=== PATIENT | female | born 1960 | race Caucasian/White ===

== ENCOUNTER 2019-05-21 15:45 | Inpatient (IN) | payer MEDICARE, OTHER ==
[~2019-05-21] VITALS: Ht 175.3 cm; Wt 73.1 kg
[2019-05-21 15:49] VITALS: BP 127/82
[2019-05-21] MEDS ORDERED: CEFPODOXIME PR200 M1 PO (16:14)
[2019-05-21] MEDS ORDERED: MEN-PHOR LOTIO222 M1 TOP (16:14)
[2019-05-21] MEDS ORDERED: FLEXERIL PO (16:15)
[2019-05-21] MEDS ORDERED: DILAUDID2 MG PO (16:16)
[2019-05-21] MEDS ORDERED: KRISTALOSE20 GM PO (16:16)
[2019-05-21] MEDS ORDERED: LOPERAMIDE 2 MG2 M1 PO (16:18)
[2019-05-21] MEDS ORDERED: ATIVAN0.5 M1 PO (16:19)
[2019-05-21] MEDS ORDERED: METRONIDAZOLE500 M4 PO (16:19)
[2019-05-21] MEDS ORDERED: KEFLEX500 M1 PO (16:20)
[2019-05-21 16:25] LABS: HEMATOCRIT 23.6 % (37.0-47.0); HEMOGLOBIN 7.6 gm/dL (12.0-15.0); MCH 27.2 pg (26.0-34.0); MCHC 32.4 g/dL (28.0-37.0); MCV 83.9 fL (80.0-100.0); NUCLEATED RBCS 0 /100WBC; PLATELET COUNT* 309 thou/uL (150-400); RBC 2.81 mil/uL (4.20-5.00); RDW-CV 16.5 % (10.5-14.5); WBC 39.6 thou/uL (4.0-11.0)
[2019-05-21] MEDS ORDERED: MS CONTIN 30 MG30 MG PO (16:28)
[2019-05-21] MEDS ORDERED: OLANZAPINE15 M1 PO (16:28)
[2019-05-21] MEDS ORDERED: ONDANSETRON ODT8 MG PO (16:32)
[2019-05-21] MEDS ORDERED: OXYCODONE HCL5 MG PO (16:32)
[2019-05-21] MEDS ORDERED: COMPAZINE10 MG PO (16:33)
[2019-05-21] MEDS ORDERED: PROTONIX40 M1 PO (16:33)
[2019-05-21] MEDS ORDERED: MIRALAX17 GM PO (16:33)
[2019-05-21 16:35] LABS: APTT 33.4 Seconds (25.0-31.3); INR 1.1; PROTIME 10.8 Seconds (9.20-11.50)
[2019-05-21 16:36] LABS: CALCIUM 8.3 mg/dL (8.5-10.1); CREATININE 1.8 mg/dL (0.6-1.3); POTASSIUM 5.7 mmol/L (3.5-5.1)
[2019-05-21 16:52] LABS: ABSOLUTE LYMPHOCYTES 0.8 thou/uL (0.8-5.3); ABSOLUTE NEUTROPHILS 38.8 thou/uL (1.6-8.1); PLATELET ESTIMATE ADEQUATE
[2019-05-21 16:53] LABS: ALBUMIN 1.2 g/dL (3.4-5.0); HYPOCHROMASIA 1+; TOTAL BILIRUBIN 0.4 mg/dL (<0.1-1.0); TOTAL PROTEIN 5.2 g/dL (6.4-8.2)
[2019-05-21 16:54] LABS: MICROCYTES Occasional
[2019-05-21 17:47] VITALS: BP 109/72
[2019-05-21 18:31] VITALS: BP 108/72
[2019-05-21 19:30] VITALS: BP 112/79
[2019-05-22] VITALS (7 sets, daily range): BP systolic 98–113; BP diastolic 67–74
[2019-05-22 05:16] LABS: ABSOLUTE LYMPHOCYTES 0.3 thou/uL (0.8-5.3); ABSOLUTE MONOCYTES 0.6 thou/uL (0.0-1.2); ABSOLUTE NEUTROPHILS 31.8 thou/uL (1.6-8.1); BASOPHILS 0.1 %; HEMATOCRIT 21.8 % (37.0-47.0); HEMOGLOBIN 7.1 gm/dL (12.0-15.0); LYMPHOCYTES 0.9 %; MCH 27.6 pg (26.0-34.0); MCHC 32.7 g/dL (28.0-37.0); MCV 84.4 fL (80.0-100.0); MONOCYTES 1.7 %; MPV 6.7 fl. (7.2-11.1); NUCLEATED RBCS 0 /100WBC; PLATELET COUNT* 244 thou/uL (150-400); POLYS 97.3 %; RBC 2.58 mil/uL (4.20-5.00); RDW-CV 16.3 % (10.5-14.5); WBC 32.7 thou/uL (4.0-11.0)
[2019-05-22 05:43] LABS: ALBUMIN 1.1 g/dL (3.4-5.0); CALCIUM 7.9 mg/dL (8.5-10.1); CREATININE 1.7 mg/dL (0.6-1.3); POTASSIUM 5.5 mmol/L (3.5-5.1); TOTAL BILIRUBIN 0.4 mg/dL (<0.1-1.0); TOTAL PROTEIN 4.7 g/dL (6.4-8.2)
[2019-05-22] MEDS ORDERED: LIDOCAINE5 GM TOP (06:59)
[2019-05-22] MEDS ORDERED: SENNA8.6 MG PO (07:03)
[2019-05-22] MEDS ORDERED: ZYPREXA5 MG PO (07:03)
--- NOTE | 2019-05-22 07:23 | NUR ---
PT AWAKE AND ANXIOUS MOST OF THE SHIFT. ASSESSMENT DOCUMENTED. MEDS GIVEN PER E-MAR. PT AND PATIENTS NIECE WORRIED ABOUT PTS MEDICATIONS. PT AND NIECE KEEP CHANGING DOSES OF MEDICATIONS, FIRST STATING PT TAKES 4MG PO DILAUDID Q4H, THEN WHEN GIVING MED PT STATES SHE ACTUALLY TAKES 4-8MG PO, ECT. PTS NIECE CAME TO NURSES STATION WHEN THIS NURSE WAS WITH PATIENT TO ASK ANOTHER NURSE TO GET THE DR TO ORDER "15 MG OF XANEX", PT AND FAMILY EDUCATED BY SEVERAL NURSES THAT THAT DOSE WAS NOT POSSIBLE, PT LATER TALKED TO THIS NURSE AND STATED MAYBE IT WAS A DIFFERENT PILL. NOTIFIED. PT ABLE TO GIVE A PHONE NUMBER FOR HOSPICE THIS AM. NUMBER CALLED FOR POONAM [phone], HOME MED LIST UPDATED WITH HER. PTS NIECE STILL STATES THAT IT IS WRONG. POONAM STATES THAT SHE IS THE PATIENT [facility] OF [facility], PHONE # FOR OFFICE IS [phone]. WILL CONTINUE WITH PLAN OF CARE.
--- NOTE | 2019-05-22 13:24 | EKG ---
[place] [id number] ELECTROCARDIOGRAM REPORT Name: SYLVIA RIVERS Room: [address] ADM IN ..#: [id number] Admission: 05/21/19 Attend Phys: Brian Kidd Discharge: Date of : 60 Report #: [id number] THIS REPORT FOR: //name// [facility] ED Test Date: 2019-05-21 Test Time: 16:48:11 Pat Name: SYLVIA LOPEZRebekah Department: Room: [facility] Gender: F Earth Moving Machine Operator: : 1960 Requested By: Igor Shelton Order Number: [id number] MD: Ruben Davis Measurements Intervals Humble Rate: 99 P: 58 SC: 139 QRS: 53 QRSD: 81 T: 55 QT: 303 QTc: 389 Interpretive Statements Sinus rhythm low voltage Anterior infarct, old Baseline wander in lead(s) V1 No previous ECG available for comparison Electronically Signed On 05-22-2019 13:24:27 BB SHOT PACKER by Ruben Davis [email or web address] <ELECTRONICALLY SIGNED> By: Ruben Davis MD, [facility] 05/22/19 1324 [id number] Ruben Davis MD, [facility] /EPI
--- NOTE | 2019-05-22 14:03 | NUR ---
Pt is A&O. Resides at home with her NUBIA and ROSA. Pt was on [facility] prior to this hospital stay. Pt voicing that she wants to try some rehab prior to return home. CM faxed referral to [facility] per Pt's request. Pt uses a walker for mobility. Therapy orders placed. Anticipate dc within the next few days. Pt to have a double J urethral stent on Monday.
--- NOTE | 2019-05-22 16:24 | NUR ---
WOUND CARE NOTE: CONSULT RECEIVED FOR STOMACH OPENINGS. PATIENT PRESENTS WITH TWO ABDOMINAL FISTULAS-PER PATIENT. THESE APPEAR TO BE HIGH OUTPUT WITHIN 30 MINUTES OF EMPTYING THESE, THE OSTOMY POUCHES REFILLED. THE APPLIANCES STARTED LEAKING, THESE WERE REMOVED. WASHED AROUND FISTULA SITES WITH SOAP AND WATER. SUPERIOR AND INFERIOR FISTULAS. SUPERIOR ONE IS LARGE, APPROXIMATELY 6X6, RED, MOIST WOUND BED. WHILE THE INFERIOR ONE IS APPROXIMATELY 0.5X0.5. APPLIED UROSTOMY POUCHES OVER THE SITES THE EFFLUENT IS LIQUID BROWN IN COLOR. ATTACHED THESE TO URINE DRAINAGE BAGS TO ASSIST WITH PREVENTING LEAKAGE. PATIENT TOLERATED THIS WELL. SACRUM (RIGHT SIDE): UNSTAGEABLE PRESSURE ULCER MEASURING 1.3X1X0.2. MOIST, YELLOW WOUND BED 100%. CARL-WOUND INTACT. COCCYX: DTI MEASURING 1X2. PURPLE, NON-BLANCHABLE DISCOLORATION. CLEANSED BOTH SITES WITH WOUND CLEANSER, PATTED DRY. APPLIED SKIN PREP TO CARL-WOUND. APPLIED OPTIFOAM AG AND COVERED WITH TEGADERM TO SECURE. PATIENT TOLERATED THIS WELL. EDUCATED PATIENT AND FAMILY MEMBER ON IMPORTANCE OF TURNING AND KEEPING OFF SITE TO PROMOTE HEALING, COMMUNICATED UNDERSTANDING, BUT WILL NEED ENCOURAGEMENT TO DO SO. RECOMMEND CHANGE DRESSINGS TO SACROCOCCYGEAL AREA Q3 DAYS AND NEEDED CHANGE POUCHES Q3-5 DAYS AND NEEDED ENCOURAGE GOOD NUTRTION/HYDRATION TURN Q2 HOURS, KEEP OFF ULCERS MUCH POSSIBLE LIMIT HOB <30 DEGREES
--- NOTE | 2019-05-22 18:01 | NUR ---
ASSUSSMED CARE OF PT APPROX 0730. REASSESSMENT COMPLETED CHARTED. MEDICATIONS GIVEN CHARTED. FAMILY AT BEDSIDE THIS SHIFT. PT OFF UNIT FOR PROCEDURE AND TESTING THIS AM. SAFTEY PRECAUTIONS UTILIZED HOURLY ROUNDING FOR SAFTEY. PT HAS BEEN SLEEPING AND DROWSY THIS AFTERNOON. WOUND NURSE CHANGED DRESSINGS AND OSTOMY BAG THIS SHIFT. PT CALLS OUT FOR NEEDS. PT ON TELE MONITOR. MEDICATIONS DISCUSSED WITH PT AND FAMILY.
[2019-05-23] VITALS (7 sets, daily range): BP systolic 92–149; BP diastolic 60–78
--- NOTE | 2019-05-23 04:04 | NUR ---
PT ALERT, ORIENTED WA. DOES FALL ASLEEP EASILY. TELEMETRY SHOWS SR. UP WITH ASSIST ON ONE. UROSTOMY DRAINING CLEAR YELLOW. TWO FISTULAS TO ILIOSTOMY BAGS THAT ARE ATTACHED TO FOLEYS FOR DRINAGE. CLINIMIX AT 40MLS/HR. PT ALTERNATING PAIN MEDICATIONS. WCTM.
[2019-05-23 05:50] LABS: CREATININE 1.6 mg/dL (0.6-1.3)
--- NOTE | 2019-05-23 11:10 | NUR ---
CM spoke with Isabella from [facility] they do not have any female skilled beds at this time, CM to discuss options
[2019-05-23 16:09] LABS: MAGNESIUM 1.3 mg/dL (1.8-2.4); PHOSPHORUS* 3.8 mg/dL (2.5-4.9)
[2019-05-23 16:45] LABS: HEMATOCRIT 22.2 % (37.0-47.0); MCH 27.2 pg (26.0-34.0); MCHC 30.9 g/dL (28.0-37.0); MCV 87.9 fL (80.0-100.0); MPV 7.7 fl. (7.2-11.1); RBC 2.52 mil/uL (4.20-5.00); RDW-CV 16.9 % (10.5-14.5); WBC 20.1 thou/uL (4.0-11.0)
[2019-05-23 16:51] LABS: HEMOGLOBIN 6.9 gm/dL (12.0-15.0)
--- NOTE | 2019-05-23 20:54 | NUR ---
VSS, A&OX4 WITH CONFUSION, SINUS TACH ON TELE, PATIENT NEPHROSTOMY TUBE HAS CLEAR YELLOW OUTPUT. UROSTOMY DRAINS ON FISTULAS ON ABDOMEN. BEDBOUND DUE TO WEAKNESS, POSSESSIONS AND CALL LIGHT WITHIN REACH. HOURLY ROUNDING PERFORMED. [id number] AT BEDSIDE.
[2019-05-24] VITALS (7 sets, daily range): BP systolic 92–115; BP diastolic 65–71
[2019-05-24 03:13] LABS: HEMATOCRIT 24.7 % (37.0-47.0); HEMOGLOBIN 7.9 gm/dL (12.0-15.0)
--- NOTE | 2019-05-24 06:03 | NUR ---
ASSUMED PT CARE AT APPROX 1930. PT IS AWAKE AND ORIENTED X4, WITH SOME FORGETFULNESS AND PERIODS OF CONFUSION-EASILY REDIRECTABLE. VSS ON ROOM AIR. LIGHT OUT EXAMINER IN PLACE TRACING ST. ASSESSMENT DONE AND CHARTED. TRANSFUSED 1 UNIT OF PRBC THIS SHIFT WITH CONGESTION PRECAUTIONS-BLOOD TRANSFUSION COMPLETED-NO TRANSFUSION REACTIONS NOTED. RPT HGB IS 7.9. PT IS ADVISED TO HAVE NOTHING BY MOUTH AFTER MIDNIGHT FOR DOUBLE J URETERAL STENT PLACEMENT IN AM. CALL LIGHT WWITHIN REACH. PT REFUSED SOME TURNS-EDUCATION ON THE IMPORTANCE OF REPOSITIONING GIVEN. HIGH FALL PRECAUTIONS IN PLACE. HOURLY ROUNDING DONE FOR PT SAFETY.
--- NOTE | 2019-05-24 07:30 | CON ---
[address] [address] CONSULTATION Name: SYLVIA RIVERS Room: [address] IN M.R.#: [id number] Admission: 05/21/19 Attend Phys: Brian Kidd Discharge: Date of : 60 Report #: [id number] THIS REPORT FOR: //name// CC: UTE SALGADO Physician staff Mark Grant DATE OF SERVICE: 05/23/2019 INFECTIOUS DISEASE CONSULTATION ATTENDING PHYSICIAN: Mark Grant DO REASON FOR EVALUATION: Sepsis, possible pneumonitis/complicated urinary tract infection. HISTORY OF PRESENT ILLNESS: Chart reviewed. The patient examined. This is a 58-year-old woman with known history of advanced ovarian cancer, actually on hospice, who has been through extensive treatments, surgeries, had a right nephrostomy tube, was only to an obstructive issue this was inadvertently removed. On evaluation, chest x-ray noted left basilar opacification, extensive abnormalities from a lab standpoint, elevated creatinine of 1.8, hyponatremia 124, albumin of 1.2, lactic acid 1.6. CBC, white count was markedly elevated at 39.6, hemoglobin 7.6. Due to concerns about possible sepsis, she was admitted and subsequently underwent imaging of abdomen and pelvis, which showed very extensive peritoneal metastatic disease as well as hepatic metastatic disease, bilateral pleural effusions, ground-glass infiltrates in right middle lobe and hydronephrosis. She did have the nephrostomy tube replaced. Blood and sputum cultures have been collected, in progress. She is empirically started on vancomycin as well as levofloxacin. At this point, she is not overtly encephalopathic. ALLERGIES: PENICILLINS, SHE STATES AN ; SHE IS UNAWARE OF ACTUAL REACTION. CURRENT MEDICATIONS: Include ipratropium and albuterol inhaler, hydrocodone, ondansetron as needed, pantoprazole, levothyroxine, lorazepam, cyclobenzaprine and vancomycin. PAST MEDICAL HISTORY: As described above, metastatic ovarian cancer. SOCIAL HISTORY: Nonsmoker, no ethanol, no illicit drug use. FAMILY HISTORY: Noncontributory. REVIEW OF SYSTEMS: Has had weight loss, poor p.o. intake, [place] [address] CONSULTATION Name: SYLVIA RIVERS Room: [address]#: [id number] Admission: 05/21/19 Attend Phys: Brian Kidd Discharge: Date of : 60 Report #: [id number] dyspnea. PHYSICAL EXAMINATION: GENERAL: She appears chronically ill, undernourished. She is pleasant, cooperative. VITAL SIGNS: Temperature 98.1, pulse 82, respirations 20, blood pressure 102/72. SKIN: Warm, dry, no rashes. HEENT: Chronically ill appearing, lack of subcutaneous tissue on her face. Extraocular muscles intact. NECK: Supple. LUNGS: Diminished breath sounds. Scattered basilar crackles. HEART: Regular. I do not appreciate a murmur. ABDOMEN: Distended. She has [address] Apparently, she had spontaneous abdominal wall perforation, presumably due to ascites. EXTREMITIES: Lower extremities have marked pitting edema all the way up to extent. GENITOURINARY: Deferred. RECTAL: Deferred. LABORATORY DATA: Blood cultures sterile thus far. Prealbumin of 4.9. Troponin less than 0.06. Electrolytes: Sodium 124, potassium 5.7, chloride 91, bicarbonate is 25, anion gap of 8, BUN and creatinine 16 and 1.5, glucose of 113. LFTs remarkable for alkaline phosphatase elevated to 282. Albumin is low at 1.2 with a total protein 5.2. White count of 39.6, H and H of 7.6 and 23.6, platelets of 309, marked predominance of neutrophils. ASSESSMENT AND PLAN: Suspected early sepsis, marked leukocytosis, multiple potential sources, although she is chronically ill appearing, is not acutely distressed. I think it is reasonable to continue empiric antimicrobial therapy. Current regimen gives this reasonable coverage. We will await cultures of the sputum as well as the blood. We will try to work at the margins. Clearly, there is likelihood overall her disease, of course will progress. Encourage p.o. intake. <ELECTRONICALLY SIGNED> By: Gus Cabrera MD 05/24/19 0730 1604 [id number] Cabrera MD /nt
--- NOTE | 2019-05-24 12:40 | NUR ---
CM went to discuss alternate skilled placements with Pt, Pt out of room. Do not anticipate weekend, CM following.
--- NOTE | 2019-05-24 18:30 | NUR ---
VSS WITH EXCEPTION OF SINUS TACH ON TELE, A&OX4, PATIENT BEDFAST, PURE WICK USED TO CAPTURE URINE. ADB FISTULA AND MASS X2- DRAINING INTO COLOSTOMY BAGS. HOURLY ROUNDING PERFORMED, POSSESSIONS AND CALL LIGHT WITHIN REACH. FAMILY AT BEDSIDE
[2019-05-25] VITALS: BP 107/78
[2019-05-25 04:00] VITALS: BP 110/75
--- NOTE | 2019-05-25 06:34 | NUR ---
ASSUMED PT CARE AT APPROX 1930. PT IS AWAKE AND ORIENTED X4. VSS ON ROOM AIR. ASSESSMENT DONE AND CHARTED. ABDOMINAL FISTULA CARE DONE AND NEW APPLIANCE APPLIED. PAIN MEDS GIVEN PER EMAR FOR BACK PAIN. POSITION CHANGES DONE. HIGH FALL PRECAUTIONS IN PLACE. CALL LIGHT WITHIN REACH.
[2019-05-25 08:00] VITALS: BP 110/68
[2019-05-25 11:17] LABS: HEMATOCRIT 23.9 % (37.0-47.0); HEMOGLOBIN 7.8 gm/dL (12.0-15.0); MCH 27.6 pg (26.0-34.0); MCHC 32.8 g/dL (28.0-37.0); MPV 8.2 fl. (7.2-11.1); NUCLEATED RBCS 0 /100WBC; PLATELET COUNT* 131 thou/uL (150-400); RBC 2.85 mil/uL (4.20-5.00); RDW-CV 17.1 % (10.5-14.5); WBC 7.7 thou/uL (4.0-11.0)
[2019-05-25 11:42] LABS: ALBUMIN 1.2 g/dL (3.4-5.0); CALCIUM 8.1 mg/dL (8.5-10.1); CREATININE 1.4 mg/dL (0.6-1.3); POTASSIUM 4.9 mmol/L (3.5-5.1); TOTAL BILIRUBIN 0.4 mg/dL (<0.1-1.0); TOTAL PROTEIN 4.8 g/dL (6.4-8.2)
[2019-05-25 11:48] VITALS: BP 100/64
[2019-05-25 12:00] LABS: ABSOLUTE LYMPHOCYTES 0.2 thou/uL (0.8-5.3); ABSOLUTE MONOCYTES 0.4 thou/uL (0.0-1.2); ABSOLUTE NEUTROPHILS 7.2 thou/uL (1.6-8.1); PLATELET ESTIMATE DECREASED
[2019-05-25 12:01] LABS: ANISOCYTOSIS 1+; BURR CELLS Occasional
[2019-05-25 12:02] LABS: TOXIC GRANULATION 1+
[2019-05-25 16:00] VITALS: BP 113/74
--- NOTE | 2019-05-25 18:00 | NUR ---
PT VSS WITH THE EXCEPTION OF SINUS TACH ON TELE, PATIENT A&OX4, SEVERE PAIN, 2 FISTULAS IN ABDOMEN, ALSO TWO TUMORS ON ABDOMEN. PATIENT DOES NOT GET OUT OF BED, USING PURE WITH TO CAPTURE URINE, Q2H TURNS. FAMILY AT BEDSIDE. POSSESSION AND CALL LIGHT WITHIN REACH. HOURLY ROUNDING PERFORMED.
[2019-05-25 20:00] VITALS: BP 106/65
[2019-05-26] VITALS: BP 99/57
[2019-05-26 04:00] VITALS: BP 111/73
--- NOTE | 2019-05-26 06:09 | NUR ---
ASSUMED PT CARE AT APPROX 1930. PT IS AWAKE AND ORIENTED X4. SALES ORDER SPECIALIST IN PLACE TRACING ST. ASSESSMENT DONE AND CHARTED. O2 SAT IS 88-90 ON ROOM AIR, O2 SUPPORT PROVIDED AT 1L/NC, PT IS ENCOURAGED TO DO DEEP BREATHING AND COUGHING EXERCISES, O2 SAT IS 91-93%. PAIN MEDS GIVEN PER EMAR NEEDED. CALL LIGHT WITHIN REACH. HOURLY ROUNDING DONE FOR SAFETY. POSITION CHANGES DONE.PT IS CLOSELY MONITORED.
[2019-05-26 07:00] VITALS: BP 100/67
--- NOTE | 2019-05-26 08:46 | NUR ---
INITAL ASSESSMENT COMPLETED CHARTED. VSS. PT C/O OF GENERALIZED PAIN. PT DENIES SOA, CP, N/V/D. NO NEW CONCERNS AT THIS TIME. TRACING ST ON MONITOR. HOURLY ROUNDING AND FALL PRECAUTIONS IN PLACE FOR PT SAFETY. CLWR. FAMILY AT BEDSIDE.
[2019-05-26 12:04] VITALS: BP 102/64
--- NOTE | 2019-05-26 15:27 | NUR ---
PT ARRIVED TO ROOM 105 VIA BED. PT ACCOMPANIED BY NIECE.PT MINIMALLY RESPONSIVE. PT HAS ZAIN RUSSELL BREATHING PATTERN. PPN INFUSING. BLE MOTTLED AND EDEMATOUS. PT UNABLE TO CLEAR ORAL SECRETIONS.
[2019-05-26 15:35] VITALS: BP 89/48
--- NOTE | 2019-05-26 15:42 | NUR ---
DR CORONADO NOTIFIED OF PT CONDITION-ACTIVE DYING. ORDERS RECEIVED TO SEND PT BACK TO TELEMETRY,CONTINUOUS PULSE OX MONITORING. NO FURTHER ORDERS FOR PAIN MEDS AT THIS TIME. DISCUSSED WITH SMOOTH GIRON AND TALIA NURSING QUALITY CONTROL COORDINATOR
[2019-05-26 19:40] VITALS: BP 121/80
[2019-05-27] VITALS: BP 106/72
[2019-05-27 04:00] VITALS: BP 107/71
--- NOTE | 2019-05-27 06:46 | NUR ---
VSS. SEE MAR. SEE CHARTING. PT INC COMPLANTS OF PAIN, MEDICATION GIVING PARTIAL RELIEF. PROGRESSING TOWARDS GOALS. FALL PRECAUITIONS IN PLACE. HOURLY ROUNDING FOR SAFETY.
[2019-05-27 08:00] VITALS: BP 120/51
[2019-05-27 11:40] VITALS: BP 108/75
--- NOTE | 2019-05-27 11:59 | NUR ---
CM spoke with Pt and NUBIA in room, Pt wants [facility]. RAKEL contacted Maria Dolores at [facility], per Maria Dolores, Pt is not allowed to elect hospice and skilled in the same benefit period, if Pt continues to want skilled, she will not be eligible to go skilled until 06/12/19. CM to update Pt. CM to discuss dispo plan.
[2019-05-27 16:37] VITALS: BP 115/79
--- NOTE | 2019-05-27 18:30 | NUR ---
ASSUMED PT CARE AT 0700, PT A&O X4, REMAINS ON BEDREST, VSS, CONT ON O2 AT 2LPM WITH CONTINUOUS PULSE OX, FULL ASSESSMENT CHARTED. PT ATTEMPTED TO WORK WITH PT THIS SHIFT, UNABLE TO TOLERATE SITTING ON SIDE OF BED FOR MORE THAN FEW MINUTES, REFUSED TO ATTEMPT TO STAND/WALK STATING TOO WEAK AND BLE TOO SWOLLEN, PT HAS 3-4+ PITTING EDEMA FROM TOES TO CHEST. CONT ON IV ABTS AND CONT PPN, TOLERATING WELL. DRESSINGS AND OSTOMY BAGS CHANGED MULTIPLE TIMES THIS SHIFT D/T LEAKING REQUIRING LENGTHY PERIODS OF TIME IN ROOM. Q2 HOUR TURNS AND HOURLY ROUNDING COMPLETED.
[2019-05-27 20:00] VITALS: BP 101/69
[2019-05-28] VITALS: BP 108/69
[2019-05-28 04:00] VITALS: BP 101/70
--- NOTE | 2019-05-28 05:38 | NUR ---
PT. HAS SLEPT WELL THROUGHOUT SHIFT. TURNED Q2H TO MAINTAIN SKIN INTEGRITY. COLOSTOMY APPLIANCE/BAG REMAINS CLEAN/DRY/INTACT WITH NO APPARENT LEAKAGE. HOURLY ROUNDING COMPLETED. TURNED Q2H TO MAINTAIN SKIN INTEGRITY. WILL CONTINUE TO MONITOR.
[2019-05-28 08:15] VITALS: BP 98/66
[2019-05-28 12:48] VITALS: BP 113/80
--- NOTE | 2019-05-28 13:54 | NUR ---
PT AND NIECE REFUSED OT THIS DATE, STATING I JUST WANT TO GO HOME FOR END OF LIFE IN [place], [place]
--- NOTE | 2019-05-28 14:44 | NUR ---
Pt now in agreement with going back on hospice. Pt originally wanted to return home in [place], per the house is not complete and not ready for Pt to return to. Plan is for Pt to return to her [facility] home with [facility]. Pt is hopeful that she will be able to return to [place], once the house is complete, and transfer hospice agencies. Philomena from [facility] to come and see Pt today. Plan dc to home tomorrow with [facility].
[2019-05-28 20:00] VITALS: BP 117/72
[2019-05-29 04:00] VITALS: BP 103/60
[2019-05-29 08:00] VITALS: BP 98/67
[2019-05-29 11:44] VITALS: BP 116/74
[2019-05-29] MEDS ORDERED: SENNA-TIME S T1 EACH PO (12:17)
[2019-05-29] MEDS ORDERED: PRENATAL PO (12:18)
--- NOTE | 2019-05-29 12:18 | NUR ---
Pt discharging to home today with [facility], hospice to deliver o2 to Pt's home. Ambulance to machine pecan picker and transport at 3pm. Faxed dc orders to hospice. DNR completed, original sent with Pt, copy on chart.
[2019-05-29] MEDS ORDERED: LIDOCAINE 4% K1 EACH TOP (14:52)
[2019-05-29 14:54] VITALS: BP 116/74
--- NOTE | 2019-05-29 17:18 | NUR ---
ASSUMED CARE OF PT APPROX 0730. REASSESSMENT COMPLETED CHARTED. MEDICATIONS GIVEN CHARTED. PT EDICATION ABOUT MEDICATIONS. DRESSINGS CHANGED AND PHOTOS TAKEN, ON CHART. HOURLY ROUNDED AND SAFTEY PRECAUTIONS UTILIZED. PT DISCHARGED TO HOME WITH HOSPICE, DISCHARGE TEACHING COMPLETED WITH PT AND PT FAMILY. EMS TRANSPORT ARRIVED FOR PT TRANSPORT APPROX 1500. PT LEFT APPROX 1520.
== END 2019-05-29 15:05 | disposition hospice, home (50) | DRG 871 ==
LOC: M.ERS 15:45 → M.TBA-ER 17:13 → M.2W 17:13 → M.ORTHSURG 05-26 15:10 → M.2W 05-26 16:57
PROVIDERS: Family Medicine; Internal Medicine; Radiology Diagnostic Radiology; ADMIT Internal Medicine
PROC: 0T9030Z Drainage of Right Kidney with Drainage Device, Percutaneous Approach (ICD-10-PCS; principal; 2019-05-22)
PROC: 30233N1 Transfusion of Nonautologous Red Blood Cells into Peripheral Vein, Percutaneous Approach (ICD-10-PCS; 2019-05-23)
PROC: 0T763DZ Dilation of Right Ureter with Intraluminal Device, Percutaneous Approach (ICD-10-PCS; 2019-05-25)
PROC: BT1D1ZZ Fluoroscopy of Right Kidney, Ureter and Bladder using Low Osmolar Contrast (ICD-10-PCS; 2019-05-25)
DX: A41.9 Sepsis, unspecified organism (principal); E43 Unspecified severe protein-calorie malnutrition; J18.9 Pneumonia, unspecified organism; J96.90 Respiratory failure, unspecified, unspecified whether with hypoxia or hypercapnia; T83.128A Displacement of other urinary devices and implants, initial encounter; N17.9 Acute kidney failure, unspecified; E87.1 Hypo-osmolality and hyponatremia; C56.9 Malignant neoplasm of unspecified ovary; F11.20 Opioid dependence, uncomplicated; C78.6 Secondary malignant neoplasm of retroperitoneum and peritoneum; G93.40 Encephalopathy, unspecified; N13.6 Pyonephrosis; Z51.5 Encounter for palliative care; F41.9 Anxiety disorder, unspecified; D50.9 Iron deficiency anemia, unspecified; E53.8 Deficiency of other specified B group vitamins; E83.42 Hypomagnesemia; D01.5 Carcinoma in situ of liver, gallbladder and bile ducts; K59.03 Drug induced constipation; T40.2X5A Adverse effect of other opioids, initial encounter; Y92.89 Other specified places as the place of occurrence of the external cause; Z93.3 Colostomy status; Z93.2 Ileostomy status; Z90.710 Acquired absence of both cervix and uterus; Z79.2 Long term (current) use of antibiotics; Z88.0 Allergy status to penicillin; Z68.23 Body mass index [BMI] 23.0-23.9, adult